=== PATIENT | female | born 1955 | race Caucasian/White ===

== ENCOUNTER 2018-07-13 05:21 | Day surgery (SDC) | payer OTHER ==
[~2018-07-13] VITALS: Ht 167.6 cm; Wt 83.0 kg
--- NOTE | ~2018-07-13 | PATH ---
[facility] [place] [address] PATHOLOGY RPT PROCEDURE Name: MAYTE ANTONIO Silvino Room #: DEP [facility]..#: [id number] Admission: 07/13/18 Date of : 57 Discharge: 07/13/18 Report #: [id number] Path Case #: [id number] [facility] Accession Number: [id number] . 01 Material submitted: . PART A: LEFT LOWER LID LESION - FS PART B: NEW MARGINS LEFT LOWER LID LESION, MEDIAL AND LATERAL - FS . 01 Clinical history: . Lesion left eyelid . 02 Diagnosis: A. "Left lower lid lesion", excision: - BASAL CELL CARCINOMA; FOCALLY INVOLVING THE LATERAL (BLACK) MARGIN. . B. "New margins left lower lid lesion medial and lateral", biopsy: - Medial margin with no residual invasive carcinoma identified. - Lateral margin with focal residual basaloid changes; new margin appears free of invasive tumor. . (OZZYW:wilfredo; 07/14/2018) MBR/07/18/2018 . 02 Electronically signed: . Colleen Franks MD, Pathologist NPI- [id number] . 01 Gross description: . A. Received fresh from the OR labeled with the patient's name, and "left lower lid lesion", consists of a triangular skin specimen with the base towards the superior end. The specimen measures 0.5 cm at the base, and is 0.8 cm at its height. The slides measure 0.6 cm approximately. The specimen is oriented as lateral, inferior and medial by Dr. Shelley. The specimen is now assigned 12:00 at the superior end, 3:00 at the lateral, 6:00 at the inferior, and 9:00 at the medial. The 12-3-6:00 is inked black, 6-9:00 is inked blue and 9-12:00 is inked green. The superior (12:00) is additionally inked red. The specimen is sectioned into three pieces and submitted for frozen section in entirety as FSA1, this is subsequently submitted for permanent sections as A1. . B. Received fresh from the OR labeled with the patient's name, and "new margin left lower lid lesion medial and lateral", consists of two strips of skin each measuring approximately 0.8 cm. The true margin is facing upwards and is tagged with surgical pen in the OR by Dr. Shelley. The true margin is further inked blue for the medial margin and black for the lateral margin. The en-face margins are submitted for frozen section as FSB1, these are subsequently submitted for permanent sections as B1. [address] [address] PATHOLOGY RPT PROCEDURE Name: MAYTE ANTONIO Silvino Room #: DEP [facility] M.R.#: [id number] Admission: 07/13/18 Date of : 57 Discharge: 07/13/18 Report #: [id number] Path Case #: [id number] (IUV:lady; 07/13/2018) . . FROZEN SECTION DIAGNOSIS: . (Minna Pereyra M.D.) . FSA1, Skin, left lower lid lesion, excision: - Basal cell carcinoma, close to medial and lateral margins. - Inferior margin free. . FSB1, Skin, new margin medial and lateral, excision: - No definite invasive carcinoma present at en-face margins on FSB slides. . . These findings are discussed with Dr. Madhav Shelley in OR-6 at [facility] and a written report is placed in the patient's chart. . Frozen section performed at [facility], [address] [facility] , [place] [address]. /QMS . 02 Pathologist provided ICD-10: C44.1192 . 02 CPT . 610843, 123133, 298654, 308000, 643742 Specimen Comment: A courtesy copy of this report has been sent to Specimen Comment: [phone], . Specimen Comment: Report sent to / DR THORNTON Performed at: 01 [facility] [address] [facility] [address], [place] [id number] MD Torey Minaya MD Phone: [phone] Performed at: 02 [facility] [address] [id number] MD Yao Yung MD Phone: [phone]
--- NOTE | ~2018-07-13 | O ---
[facility] [place] [address] [place] [address] OPERATIVE REPORT Name: MAYTE ANTONIO Room #: DEP [facility].#: [id number] Admission: 07/13/18 Attend Phys: Madhav Shelley MD Discharge: 07/13/18 Date of : 57 Report #: [id number] THIS REPORT FOR: //name// CC: Physician staff SHA Shelley DATE OF SERVICE: 07/13/2018 PREOPERATIVE DIAGNOSIS: Tumor of left lower lid. POSTOPERATIVE DIAGNOSIS: Tumor of left lower lid, basal cell carcinoma. PROCEDURE: Excision of tumor of left lower lid with frozen section, controls of margins and myocutaneous flap repair of defect. SURGEON: Madhav Shelley MD INTERNATIONAL LOGISTICS MANAGER: None. ANESTHESIA: MAC. COMPLICATIONS: None. INDICATIONS FOR SURGERY: This pleasant 62-year-old woman has a nodular ulcerative lesion in her central left lower lid with madarosis that appears to be a basal cell carcinoma. She presents today for excision of this lesion with frozen sections and subsequent reconstruction of that defect. Informed consent was obtained to include but not limited to the potential risk for loss of vision, bleeding, infection, failure to improve the problem, and the potential need for further surgery or treatment. DESCRIPTION OF PROCEDURE: The patient was taken to the operating room where 2% Xylocaine with epinephrine mixed with equal parts of 0.75% Marcaine with Wydase was administered transcutaneously and transconjunctivally to the left lower lid, the left cheek, the left medial canthus, left lateral canthus and the infratemporal fossa. The patient was subsequently prepped and draped in the usual sterile fashion. A fine tip skin marking pen was then used to outline the lesion including 1-2 mm of normal appearing tissue around the lesion's margin. The incisions were then made with a Lai scissor and drawn down to a point in the premalar tissues. The specimen was then oriented on a drawing for the waiting pathologist. She snap froze that tissue and then examined it utilizing frozen section techniques. She found that the lesion was indeed a basal cell carcinoma and that she felt that both margins could potentially be positive. [address] [address] OPERATIVE REPORT Name: MAYTE ANTONIO Room #: DEP [facility].#: [id number] Admission: 07/13/18 Attend Phys: Madhav Shelley MD Discharge: 07/13/18 Date of : 57 Report #: [id number] Additional margins were then taken medially and laterally and oriented for the pathologist. Hemostasis was achieved in the field and she snap froze that tissue. She analyzed these margins and found that they were clear. Attention was then returned to repair the ensuing defect, which was much larger than had been originally anticipated. A myocutaneous flap was then developed laterally. Hemostasis was then re-achieved. The flap was then advanced and secured with interrupted 5-0 Vicryl sutures deep. The 5-0 Vicryl sutures were also used at the level of the tarsal plate. A 7-0 Vicryl sutures were used on the eyelid margin. The subcutaneous structures and the skin more superficially were closed with subcutaneous Vicryl sutures deep and then 6-0 plain gut sutures superficially. The wounds were then cleaned and dressed with erythromycin ophthalmic ointment. The patient subsequently transported to the recovery area having tolerated the procedures well with no anesthetic or operative complications being noted. <ELECTRONICALLY SIGNED> By: Madhav Shelley MD 07/17/18 0620 [id number] Madhav Shelley MD /nt
[~2018-07-13 05:21] MED LIST: MULTI VITAMIN1 EACH PO; VITAMIN D2000 UNIT PO
[2018-07-13 10:36] VITALS: BP 147/80
== END 2018-07-13 14:15 | disposition home or self-care (01) ==
LOC: TBA 05:21 → OR 05:21
DX: C44.1192 Basal cell carcinoma of skin of left lower eyelid, including canthus (principal); Z79.899 Other long term (current) drug therapy; Z88.0 Allergy status to penicillin
CPT/HCPCS: 50010; 50101; 50386; 50398; 51636; 56528; 56531; 62110; 62850; 70005